=== PATIENT | female | born 1985 | race American Indian/Alaskan Native ===

== ENCOUNTER 2017-03-23 15:12 | Emergency (ER) | payer MEDICAID ==
[2017-03-23] MEDS ORDERED: MOTRIN ONE (22:54)
[2017-03-23] MEDS ORDERED: TYLENOL #3 ONE (22:55)
[2017-03-23] MEDS ORDERED: MOTRIN PO ONE (22:58)
[2017-03-23] MEDS ORDERED: TYLENOL #3 PO ONE (22:58)
[2017-03-23] MEDS ORDERED: DECADRON IM ONE (23:12)
--- NOTE | 2017-03-23 23:12 | Emergency Department Report ---
ED ENT HPI - General Chief complaint: Headache Stated complaint: SINUSES Time Seen by Provider: 03/23/17 22:26 Source: patient Mode of arrival: Ambulatory Limitations: No Limitations - History of Present Illness Initial comments: 31F PMH sinusitis p/w c/o 3 days of sinus drainage, nasal congestion and headache. Also c/o sore throat, denies nausea, denies fevers or chills, denies dysruia, hematuria, increased urinary frequency. + multiple sick contacts MD complaint: sore throat Onset/Timin -: days(s) Location: nose Severity: moderate Severity scale (0 -10): 5 Quality: aching Consistency: intermittent Improves with: none Worsens with: none Associated Symptoms: cough - Related Data Previous Rx's Medication Instructions Recorded Last Taken Type Amoxicillin/K Clav Tab [Augmentin 1 each PO Q8HR #30 tablet 02/04/14 Unknown Rx 500 mg] Butalb/Acetamin/Caff 50-325-40 1 tab PO Q6H PRN #15 tablet 02/04/14 Unknown Rx [Fioricet] Fluticasone [Flonase] 1 spray NS QDAY #1 bottle 02/04/14 Unknown Rx Loratadine/Pseudoephedrine 1 tab PO Q12H #20 tablet 02/04/14 Unknown Rx [Claritin-D 12HR] Amoxicillin/K Clav Tab [Augmentin 1 tab PO Q12HR #20 tab 03/23/17 Unknown Rx 875 mg] Benzonatate [Tessalon Perles] 100 mg PO Q8HR PRN #30 capsule 03/23/17 Unknown Rx Dextromethorphan/Benzocaine 1 each PO Q4H PRN #1 box 03/23/17 Unknown Rx [Cepacol Sorethroat-Cough Walt] Ibuprofen [Motrin] 800 mg PO Q8HR PRN #30 tablet 03/23/17 Unknown Rx Phenylephrine/Dm/Acetaminop/GG 10 ml PO Q6H PRN #1 liquid 03/23/17 Unknown Rx [Mucinex Slqw-Eys-Qxmthpkuup Lq] Allergies Allergy/AdvReac Type Severity Reaction Status Date / Time No Known Allergies Allergy Verified 03/23/17 22:54 ED Dental HPI - General Chief complaint: Headache Stated complaint: SINUSES Time Seen by Provider: 03/23/17 22:26 Source: patient Mode of arrival: Ambulatory Limitations: No Limitations - Related Data Previous Rx's Medication Instructions Recorded Last Taken Type Amoxicillin/K Clav Tab [Augmentin 1 each PO Q8HR #30 tablet 02/04/14 Unknown Rx 500 mg] Butalb/Acetamin/Caff 50-325-40 1 tab PO Q6H PRN #15 tablet 02/04/14 Unknown Rx [Fioricet] Fluticasone [Flonase] 1 spray NS QDAY #1 bottle 02/04/14 Unknown Rx Loratadine/Pseudoephedrine 1 tab PO Q12H #20 tablet 02/04/14 Unknown Rx [Claritin-D 12HR] Amoxicillin/K Clav Tab [Augmentin 1 tab PO Q12HR #20 tab 03/23/17 Unknown Rx 875 mg] Benzonatate [Tessalon Perles] 100 mg PO Q8HR PRN #30 capsule 03/23/17 Unknown Rx Dextromethorphan/Benzocaine 1 each PO Q4H PRN #1 box 03/23/17 Unknown Rx [Cepacol Sorethroat-Cough Walt] Ibuprofen [Motrin] 800 mg PO Q8HR PRN #30 tablet 03/23/17 Unknown Rx Phenylephrine/Dm/Acetaminop/GG 10 ml PO Q6H PRN #1 liquid 03/23/17 Unknown Rx [Mucinex Hxjd-Cmj-Jubdhubpuz Lq] Allergies Allergy/AdvReac Type Severity Reaction Status Date / Time No Known Allergies Allergy Verified 03/23/17 22:54 ED Review of Systems ROS: Stated complaint: SINUSES Other details as noted in HPI Constitutional: denies: chills, fever Eyes: denies: eye pain, eye discharge, vision change ENT: congestion. denies: ear pain, throat pain Respiratory: denies: cough, shortness of breath, wheezing Cardiovascular: denies: chest pain, palpitations Endocrine: no symptoms reported Gastrointestinal: denies: abdominal pain, nausea, diarrhea Genitourinary: denies: urgency, dysuria, discharge Musculoskeletal: denies: back pain, joint swelling, arthralgia Skin: denies: rash, lesions Neurological: denies: headache, weakness, paresthesias Psychiatric: denies: anxiety, depression Hematological/Lymphatic: denies: easy bleeding, easy bruising ED Past Medical Hx - Past Medical History Previous Medical History?: No - Surgical History Past Surgical History?: Yes Additional Surgical History: left femur and left ankle - Social History Smoking Status: Never Smoker Substance Use Type: None - Medications Home Medications: Home Medications Medication Instructions Recorded Confirmed Last Taken Type Amoxicillin/K Clav Tab [Augmentin 1 each PO Q8HR #30 tablet 02/04/14 Unknown Rx 500 mg] Butalb/Acetamin/Caff 50-325-40 1 tab PO Q6H PRN #15 tablet 02/04/14 Unknown Rx [Fioricet] Fluticasone [Flonase] 1 spray NS QDAY #1 bottle 02/04/14 Unknown Rx Loratadine/Pseudoephedrine 1 tab PO Q12H #20 tablet 02/04/14 Unknown Rx [Claritin-D 12HR] Amoxicillin/K Clav Tab [Augmentin 1 tab PO Q12HR #20 tab 03/23/17 Unknown Rx 875 mg] Benzonatate [Tessalon Perles] 100 mg PO Q8HR PRN #30 capsule 03/23/17 Unknown Rx Dextromethorphan/Benzocaine 1 each PO Q4H PRN #1 box 03/23/17 Unknown Rx [Cepacol Sorethroat-Cough Walt] Ibuprofen [Motrin] 800 mg PO Q8HR PRN #30 tablet 03/23/17 Unknown Rx Phenylephrine/Dm/Acetaminop/GG 10 ml PO Q6H PRN #1 liquid 03/23/17 Unknown Rx [Mucinex Wjni-Tyk-Moscpqqiic Lq] ED Physical Exam - General Limitations: No Limitations General appearance: alert, in no apparent distress - Head Head exam: Present: atraumatic, normocephalic - Eye Eye exam: Present: normal appearance, PERRL, EOMI - ENT ENT exam: Present: mucous membranes moist, other (+ sinus tenderness to percussion frontal) - Neck Neck exam: Present: normal inspection - Respiratory Respiratory exam: Present: normal lung sounds bilaterally. Absent: respiratory distress - Cardiovascular Cardiovascular Exam: Present: regular rate, normal rhythm. Absent: systolic murmur, diastolic murmur, rubs, gallop - GI/Abdominal GI/Abdominal exam: Present: soft, normal bowel sounds - Extremities Exam Extremities exam: Present: normal inspection - Back Exam Back exam: Present: normal inspection - Neurological Exam Neurological exam: Present: alert, oriented X3 - Psychiatric Psychiatric exam: Present: normal affect, normal mood - Skin Skin exam: Present: warm, dry, intact, normal color. Absent: rash ED Course Vital Signs 03/23/17 03/23/17 03/23/17 15:26 20:55 23:01 Temperature 98.5 F 98 F Pulse Rate 92 H 101 H Respiratory 16 18 18 Rate Blood Pressure 134/86 Blood Pressure 125/79 [Right] O2 Sat by Pulse 100 99 Oximetry ED Medical Decision Making - Medical Decision Making A/P: Acute sinusitis 1-patient has history of recurrent sinusitis will treat empirically with 10 day course of Augmentin 2-symptomatic treatment 3-follow up with primary care doctor Critical care attestation.: If time is entered above; I have spent that time in minutes in the direct care of this critically ill patient, excluding procedure time. ED Disposition Clinical Impression: Tonsillitis Sinusitis Qualifiers: Sinusitis location: frontal Chronicity: acute Recurrence: non-recurrent Qualified Code(s): J01.10 - Acute frontal sinusitis, unspecified Disposition: - TO HOME OR SELFCARE Is pt being admited?: No Does the pt Need Aspirin: No Condition: Stable Instructions: Sinusitis (ED), Tonsillitis (ED) Prescriptions: Amoxicillin/K Clav Tab [Augmentin 875 mg] 1 tab PO Q12HR #20 tab Benzonatate [Tessalon Perles] 100 mg PO Q8HR PRN #30 capsule PRN Reason: Cough Dextromethorphan/Benzocaine [Cepacol Sorethroat-Cough Walt] 1 each PO Q4H PRN #1 box PRN Reason: Sore Throat Ibuprofen [Motrin] 800 mg PO Q8HR PRN #30 tablet PRN Reason: Pain Phenylephrine/Dm/Acetaminop/GG [Mucinex Mgrm-Iod-Edsnfhgrri Lq] 10 ml PO Q6H PRN #1 liquid PRN Reason: Cough Referrals: NASIM PARKER MD [Primary Care Provider] - 3-5 Days Forms: Accompanied Note, Work/School Release Form(ED) Time of Disposition: 23:10
[2017-03-23 23:24] VITALS: BP 104/81
== END 2017-03-23 23:24 | disposition home or self-care (01) ==
LOC: ED 15:12
DX: J01.10 Acute frontal sinusitis, unspecified (principal); J03.90 Acute tonsillitis, unspecified
CPT/HCPCS: 96372; 99282; J1100

== ENCOUNTER 2017-11-18 12:20 | Emergency (ER) | payer MEDICAID ==
[2017-11-18 12:35] VITALS: BP 131/87
[2017-11-18] MEDS ORDERED: PROVENTIL IH ONE (12:52)
[2017-11-18] MEDS ORDERED: ATROVENT IH ONE (12:52)
[2017-11-18] MEDS ORDERED: DECADRON IM ONE (13:06)
--- NOTE | 2017-11-18 13:38 | Emergency Department Report ---
ED Shortness of Breath HPI - General Chief Complaint: Upper Respiratory Infection Stated Complaint: SOB Time Seen by Provider: 11/18/17 12:48 Source: patient Mode of arrival: Ambulatory Limitations: No Limitations - History of Present Illness Initial Comments: This is a 32-year-old female nontoxic, well nourished in appearance, no acute signs of distress presents to the ED with c/o of productive cough, sore throat, rhinorrhea, nasal congestion, and shortness of breathe x1 day. Patient describes productive cough as yellow mucus production. Patient state that she wake up with sensation of difficulty breathing and unable to catch breathe. Patient denies any sick contact. Patient denies any recent travels, long car, recent hospital stays. Patient denies any calf pain or calf tenderness. Patient denies any chest pain, short of breath, fever, chills, nausea, vomiting , hemoptysis, numbness, tingling, headache or stiff neck. Patient denies any allergies or PMH. MD Complaint: shortness of breath, cough -: This morning Pain Scale: 0 Consistency: constant Improves With: nothing Worsens With: nothing Associated Symptoms: cough, other (sore throat) Treatments Prior to Arrival: none - Related Data Previous Rx's Medication Instructions Recorded Last Taken Type Amoxicillin/K Clav Tab [Augmentin 1 each PO Q8HR #30 tablet 02/04/14 Unknown Rx 500 mg] Butalb/Acetamin/Caff 50-325-40 1 tab PO Q6H PRN #15 tablet 02/04/14 Unknown Rx [Fioricet] Fluticasone [Flonase] 1 spray NS QDAY #1 bottle 02/04/14 Unknown Rx Loratadine/Pseudoephedrine 1 tab PO Q12H #20 tablet 02/04/14 Unknown Rx [Claritin-D 12HR] Amoxicillin/K Clav Tab [Augmentin 1 tab PO Q12HR #20 tab 03/23/17 Unknown Rx 875 mg] Benzonatate [Tessalon Perles] 100 mg PO Q8HR PRN #30 capsule 03/23/17 Unknown Rx Dextromethorphan/Benzocaine 1 each PO Q4H PRN #1 box 03/23/17 Unknown Rx [Cepacol Sorethroat-Cough Walt] Ibuprofen [Motrin] 800 mg PO Q8HR PRN #30 tablet 03/23/17 Unknown Rx Phenylephrine/Dm/Acetaminop/GG 10 ml PO Q6H PRN #1 liquid 03/23/17 Unknown Rx [Mucinex Yinb-Utp-Pdetrtwgui Lq] ALBUTEROL Inhaler(NF) [VENTOLIN 1 puff IH Q4H PRN #1 inha 11/18/17 Unknown Rx Inhaler(NF)] Azithromycin [Zithromax Z-VANIA] 250 mg PO DAILY #6 tablet 11/18/17 Unknown Rx Ibuprofen [Motrin] 600 mg PO Q8H PRN #30 tablet 11/18/17 Unknown Rx Prednisone [predniSONE 10 mg 10 mg PO .TAPER #1 tab.ds.pk 11/18/17 Unknown Rx (6-Day Pack, 21 Tabs)] Allergies Allergy/AdvReac Type Severity Reaction Status Date / Time No Known Allergies Allergy Verified 03/23/17 22:54 ED Review of Systems ROS: Stated complaint: SOB Other details as noted in HPI Constitutional: denies: chills, fever Eyes: denies: eye pain, eye discharge, vision change ENT: throat pain. denies: ear pain Respiratory: cough. denies: shortness of breath, wheezing Cardiovascular: denies: chest pain, palpitations Endocrine: no symptoms reported Gastrointestinal: denies: abdominal pain, nausea, diarrhea Genitourinary: denies: urgency, dysuria, discharge Musculoskeletal: denies: back pain, joint swelling, arthralgia Skin: denies: rash, lesions Neurological: denies: headache, weakness, paresthesias Psychiatric: denies: anxiety, depression Hematological/Lymphatic: denies: easy bleeding, easy bruising ED Past Medical Hx - Past Medical History Previous Medical History?: No - Surgical History Additional Surgical History: left femur and left ankle - Social History Smoking Status: Never Smoker Substance Use Type: None - Medications Home Medications: Home Medications Medication Instructions Recorded Confirmed Last Taken Type Amoxicillin/K Clav Tab [Augmentin 1 each PO Q8HR #30 tablet 02/04/14 Unknown Rx 500 mg] Butalb/Acetamin/Caff 50-325-40 1 tab PO Q6H PRN #15 tablet 02/04/14 Unknown Rx [Fioricet] Fluticasone [Flonase] 1 spray NS QDAY #1 bottle 02/04/14 Unknown Rx Loratadine/Pseudoephedrine 1 tab PO Q12H #20 tablet 02/04/14 Unknown Rx [Claritin-D 12HR] Amoxicillin/K Clav Tab [Augmentin 1 tab PO Q12HR #20 tab 03/23/17 Unknown Rx 875 mg] Benzonatate [Tessalon Perles] 100 mg PO Q8HR PRN #30 capsule 03/23/17 Unknown Rx Dextromethorphan/Benzocaine 1 each PO Q4H PRN #1 box 03/23/17 Unknown Rx [Cepacol Sorethroat-Cough Walt] Ibuprofen [Motrin] 800 mg PO Q8HR PRN #30 tablet 03/23/17 Unknown Rx Phenylephrine/Dm/Acetaminop/GG 10 ml PO Q6H PRN #1 liquid 03/23/17 Unknown Rx [Mucinex Ndzd-Kxz-Bklmstwntv Lq] ALBUTEROL Inhaler(NF) [VENTOLIN 1 puff IH Q4H PRN #1 inha 11/18/17 Unknown Rx Inhaler(NF)] Azithromycin [Zithromax Z-VANIA] 250 mg PO DAILY #6 tablet 11/18/17 Unknown Rx Ibuprofen [Motrin] 600 mg PO Q8H PRN #30 tablet 11/18/17 Unknown Rx Prednisone [predniSONE 10 mg 10 mg PO .TAPER #1 tab.ds.pk 11/18/17 Unknown Rx (6-Day Pack, 21 Tabs)] ED Physical Exam - General Limitations: No Limitations General appearance: alert, in no apparent distress - Head Head exam: Present: atraumatic, normocephalic - Eye Eye exam: Present: normal appearance Pupils: Present: normal accommodation - ENT ENT exam: Present: mucous membranes moist, TM's normal bilaterally, normal external ear exam - Expanded ENT Exam Expanded Ear exam: Present: normal external inspection Mouth exam: Present: normal external inspection, tongue normal. Absent: drooling, trismus, muffled voice, tongue elevation, laceration Teeth exam: Present: normal inspection Throat exam: Positive: tonsillar erythema, tonsillomegaly (2+), other (Uvula midline. No abscess noted. No foreign body noted.). Negative: tonsillar exudate , R peritonsillar mass, L peritonsillar mass - Neck Neck exam: Present: normal inspection, full ROM, lymphadenopathy (bilateral tonsillar). Absent: tenderness, meningismus - Respiratory Respiratory exam: Present: normal lung sounds bilaterally, wheezes (bilateral lower lobes), chest wall tenderness (midline substernal). Absent: respiratory distress, rales, rhonchi, stridor, accessory muscle use, decreased breath sounds , prolonged expiratory - Cardiovascular Cardiovascular Exam: Present: regular rate, normal rhythm, normal heart sounds. Absent: bradycardia, tachycardia, irregular rhythm, systolic murmur, diastolic murmur, rubs, gallop - GI/Abdominal GI/Abdominal exam: Present: soft, normal bowel sounds - Extremities Exam Extremities exam: Present: normal inspection, full ROM, normal capillary refill. Absent: tenderness - Back Exam Back exam: Present: normal inspection, full ROM - Neurological Exam Neurological exam: Present: alert, oriented X3, CN II-XII intact, normal gait - Expanded Neurological Exam Expanded Patient oriented to: Present: person, place, time Cranial nerves: EOM's Intact: Normal, Facial Sensation: Normal Cerebellar function: Finger to Nose: Normal Upper motor neuron: Pronator Drift: Normal Sensory exam: Upper Extremity Light Touch: Normal, Upper Extremity Pin Prick: Normal, Upper Extremity Temperature: Normal, UE 2 Point Discrimination: Normal, Lower Extremity Light Touch: Normal, Lower Extremity Pin Prick: Normal, Lower Extremity Temperature: Normal, LE 2 Point Discrimination: Normal Motor strength exam: RUE: 5, LUE: 5, RLE: 5, LLE: 5 Best Eye Response ([place]): (4) open spontaneously Best Motor Response ([place]): (6) obeys commands Best Verbal Response ([place]): (5) oriented [place] Total: 15 - Psychiatric Psychiatric exam: Present: normal affect, normal mood - Skin Skin exam: Present: warm, dry, intact, normal color. Absent: rash ED Course Vital Signs 11/18/17 11/18/17 11/18/17 12:31 13:00 13:40 Temperature 98.6 F Pulse Rate 85 Pulse Rate [ 85 90 Anterior] Respiratory 18 Rate Respiratory 20 17 Rate [Anterior] Blood Pressure 131/87 O2 Sat by Pulse 98 Oximetry - Reevaluation(s) Reevaluation #1: 11/18/17 13:46 Patient is speaking in full sentences with no signs of distress noted. ED Medical Decision Making - Lab Data Result diagrams: 11/18/17 13:20 11/18/17 13:20 - Medical Decision Making This is a 32-year-old female that presents with bronchitis and tonsillitis. Patient is stable and was examined by me. Chest x-ray has been obtained and dictated by radiologist with normal exam. Patient is notified of x-ray results with no questions noted. EKG normal sinus rhytm. D-dimmer slightly elevated. CTA obtained and dictated by radiologist within normal limits. Labs unremarkable. Due to patient having symptoms of upper respiratory infection and worsening I will treat patient empirically with zpak. Patient was instructed to increase hydration, rest and take Motrin for fever episodes. Patient received breathing treatment and Decadron in the ED which patient that his symptoms are improved and subsided. Post treatment wheezing has subsided. Vitals stable. Patient is nonfebrile and normal heart rate. Patient was instructed Follow-up with a primary care doctor in 3-5 days or if symptoms worsen and continue return to emergency room as soon as possible. At time time of discharge, the patient does not seem toxic or ill in appearance. No acute signs of distress noted. Patient agrees to discharge treatment plan of care. No further questions noted by the patient. Critical care attestation.: If time is entered above; I have spent that time in minutes in the direct care of this critically ill patient, excluding procedure time. ED Disposition Clinical Impression: Bronchitis, Tonsillitis Disposition: DC-01 TO HOME OR SELFCARE Is pt being admited?: No Does the pt Need Aspirin: No Condition: Stable Instructions: Acute Bronchitis (ED) Additional Instructions: Follow-up with a primary care doctor in 3-5 days or if symptoms worsen and continue return to emergency room as soon as possible. Prescriptions: ALBUTEROL Inhaler(NF) [VENTOLIN Inhaler(NF)] 1 puff IH Q4H PRN #1 inha PRN Reason: shortness of breath Azithromycin [Zithromax Z-VANIA] 250 mg PO DAILY #6 tablet Ibuprofen [Motrin] 600 mg PO Q8H PRN #30 tablet PRN Reason: Pain Prednisone [predniSONE 10 mg (6-Day Pack, 21 Tabs)] 10 mg PO .TAPER #1 tab.ds.pk Referrals: PRIMARY CARE, [Primary Care Provider] - 3-5 Days GHISLAINE SERRANO MD [Staff Physician] - 3-5 Days [facility] [Outside] - 3-5 Days [facility] [Outside] - 3-5 Days Forms: Work/School Release Form(ED)
--- NOTE | 2017-11-18 13:39 | XRay Report ---
ROUTINE CHEST, TWO VIEWS: HISTORY: Shortness of breath. The trachea, heart, mediastinal contour, lung aguilar and bony thorax are unremarkable. IMPRESSION: Unremarkable chest x-ray.
[2017-11-18 13:41] LABS: Basophils # (Auto) 0.1 K/mm3 (0.0-0.1); Basophils % (Auto) 0.4 % (0.0-1.8); Eosinophils % (Auto) 0.1 % (0.0-4.3); Hemoglobin 11.8 gm/dl (10.1-14.3); Lymphocytes # (Auto) 2.4 K/mm3 (1.2-5.4); Lymphocytes % (Auto) 20.4 % (13.4-35.0); Mean Corpuscular HGB Conc 32 % (30-34); Mean Corpuscular Hemoglobin 25 pg (28-32); Mean Corpuscular Volume 76 fl (79-97); Monocytes # (Auto) 0.9 K/mm3 (0.0-0.8); Monocytes % (Auto) 7.6 % (0.0-7.3); Platelet Count 227 K/mm3 (140-440); Red Blood Count 4.84 M/mm3 (3.65-5.03); Red Cell Distribution Width 15.6 % (13.2-15.2)
[2017-11-18 14:00] LABS: BUN/Creatinine Ratio 10; Blood Urea Nitrogen 7 mg/dL (7-17); Calcium 8.9 mg/dL (8.4-10.2); Hemolysis Index 20
--- NOTE | 2017-11-18 16:39 | Cat Scan Report ---
FINAL REPORT EXAM: CT ANGIO CHEST HISTORY: shortness of breathe TECHNIQUE: CTA of chest with IV contrast. Coronal and sagittal and MIP reconstructed images provided. PRIORS: None currently available. FINDINGS: No pneumothorax. No effusion. No consolidation. No endobronchial lesion. Main pulmonary artery is unremarkable. No pulmonary embolus. No aortic aneurysm. No dissection. Major branch arteries are unremarkable. Heart size unremarkable. No pericardial effusion. There is no axillary adenopathy. There is no hilar or mediastinal mass or adenopathy. Images of the esophagus are unremarkable. Images of the thyroid gland are unremarkable. No suspicious osseous lesions on this limited examination of the skeleton. Metastatic disease better evaluated with bone scan. IMPRESSION: No acute findings.
== END 2017-11-18 16:50 | disposition home or self-care (01) ==
LOC: ED 12:20
DX: J03.90 Acute tonsillitis, unspecified (principal); J40 Bronchitis, not specified as acute or chronic
CPT/HCPCS: 36415; 71046; 71275; 80048; 84484; 84703; 85025; 85379; 93005; 93010; 94640; 96372; 99284; J1100; Q9967

== ENCOUNTER 2018-01-05 11:29 | Emergency (ER) | payer MEDICAID ==
[2018-01-05 11:34] VITALS: BP 136/78
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
== END 2018-01-05 16:31 | disposition left against medical advice (07) ==
LOC: ED 11:29
DX: M25.572 Pain in left ankle and joints of left foot (principal); W01.0XXA Fall on same level from slipping, tripping and stumbling without subsequent striking against object, initial encounter; Y93.89 Activity, other specified; Y92.89 Other specified places as the place of occurrence of the external cause; Y99.8 Other external cause status
CPT/HCPCS: 99282

== ENCOUNTER 2019-09-03 18:36 | Emergency (ER) | payer SELFPAY ==
[2019-09-03 18:46] VITALS: BP 126/85
--- NOTE | 2019-09-03 20:21 | Emergency Department Report ---
Chief Complaint: Extremity Injury, Lower Stated Complaint: (L) LEG PAIN Time Seen by Provider: 09/03/19 20:16 - HPI History of Present Illness: This is a 34-year-old female presents the ED complaining of left knee pain x4 days. Patient states she had her knee surgery when she had a nicolette placement and screws placed in 2009. Patient states that 4 days ago she has been experiencing pain in that same leg. She denies any injury recent trauma or fall to the knee or leg. She denies calf pain. She states pain is localized to her left knee and anterior cancino where she had surgery. - ROS Review of Systems: As noted in HPI - Exam Vital Signs: Vital Signs 09/03/19 18:42 Temperature 98.1 F Pulse Rate 89 Respiratory 16 Rate Blood Pressure 126/85 O2 Sat by Pulse 100 Oximetry Physical Exam: GENERAL: Alert and oriented x3, no apparent distress, Normal Gait, atraumatic. HEAD: Head is normocephalic and a-traumatic. EXTREMITIES/MUSCULOSKELETAL: No cyanosis, clubbing, rash, lesions or edema. Full ROM bilaterally. UE/LE Pulses 2+ bilaterally. LE and UE 5+ strength bilaterally, NEUROLOGIC: The patient is cooperative with no focal neurologic deficits. SKIN: Warm and dry, No lesions, No ulceration or induration present. MSE screening note: Focused history and physical exam performed. Due to findings the following was ordered: ED Disposition for MSE Clinical Impression: Left leg pain, Left knee pain Disposition: Z-07 MED SCREENING EXAM-LEFT Is pt being admited?: No Does the pt Need Aspirin: No Condition: Stable Instructions: Arthralgia (ED) Additional Instructions: Make sure to follow up with the orthopedic doctor as discussed. Take all your medications as you've been prescribed. If you have any worsening symptoms or develop new symptoms please return to ED immediately. Prescriptions: Ibuprofen [Motrin 800 MG tab] 800 mg PO Q8HR PRN #30 tablet PRN Reason: Pain methOCARBAMOL [Robaxin TAB] 500 mg PO BID #30 tab Referrals: PRIMARY MD GERMAN [Primary Care Provider] - 3-5 Days DOM RAMOS MD [Staff Physician] - 3-5 Days [facility] [Provider Group] - 3-5 Days [facility], [Provider Group] - 3-5 Days [facility] [Provider Group] - 3-5 Days Forms: Work/School Release Form(ED) Time of Disposition: 20:22
== END 2019-09-03 20:25 | disposition left against medical advice (07) ==
LOC: ED 18:36
DX: M79.605 Pain in left leg (principal); Z53.21 Procedure and treatment not carried out due to patient leaving prior to being seen by health care provider

== ENCOUNTER 2020-09-13 10:34 | Emergency (ER) | payer SELFPAY ==
[2020-09-13 10:41] VITALS: BP 134/91
[2020-09-13] MEDS ORDERED: IBUPROFEN 800 MG TAB PO STA (11:21)
[2020-09-13] MEDS ORDERED: ACETAMINOPHEN 500 MG TAB PO STA (11:21)
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
== END 2020-09-13 12:46 | disposition home or self-care (01) ==
LOC: ED 10:34
DX: S89.91XA Unspecified injury of right lower leg, initial encounter (principal); Z98.890 Other specified postprocedural states; Z79.899 Other long term (current) drug therapy; V87.7XXA Person injured in collision between other specified motor vehicles (traffic), initial encounter; Y93.89 Activity, other specified; Y92.488 Other paved roadways as the place of occurrence of the external cause; Y99.8 Other external cause status
CPT/HCPCS: 99284

== ENCOUNTER 2020-12-10 08:11 | Emergency (ER) | payer SELFPAY | END 2020-12-10 08:15 | disposition left against medical advice (07) | LOC: ED 08:11 | DX: R51.9 Headache, unspecified (principal); Z53.21 Procedure and treatment not carried out due to patient leaving prior to being seen by health care provider ==